=== PATIENT | male | born 2005 | race Caucasian/White ===

== ENCOUNTER 2023-11-25 13:00 | Inpatient (IN) ==
[2023-11-25 13:42] LABS: Basophils # (auto) 0.03 K/uL (0.00-0.20); Basophils % (auto) 0.4 %; Eosinophils # (auto) 0.19 K/uL (0.00-0.50); Eosinophils % (auto) 2.8 %; Hematocrit (blood only) 43.7 % (42.0-52.0); Hemoglobin 15.3 g/dl (14.0-18.0); Immature Granulocytes # (auto) 0.02 K/uL (0.01-0.20); Immature Granulocytes % (auto) 0.3 %; Lymphocytes # (auto) 2.12 K/uL (1.20-3.40); Lymphocytes % (auto) 31.1 %; Mean Corpuscular Hemoglobin 29.3 pg (25.0-34.0); Mean Corpuscular Volume 83.6 fL (80.0-100.0); Mean Platelet Volume 9.9 fL (9.4-12.4); Monocytes # (auto) 0.47 K/uL (0.11-0.59); Monocytes % (auto) 6.9 %; Neutrophils # (auto) 3.99 K/uL (1.40-6.50); Neutrophils % (auto) 58.5 %; Platelet Count 301 K/uL (130-400); RDW Coefficient of Variation 11.9 % (11.5-14.5); RDW Standard Deviation 36.2 fL (36.4-46.3); Red Blood Count 5.23 M/uL (4.70-6.10); White Blood Count 6.82 K/ul (4.8-10.8)
[2023-11-25 14:05] LABS: Alanine Aminotransferase 61 U/L (7-52); Albumin Globulin Ratio 2.3 (0.9-2); Albumin Level 5.1 gm/dl (3.4-5.0); Alkaline Phosphatase 123 U/L (34-104); Anion Gap 7 (3-11); Aspartate Aminotransferase 26 U/L (13-39); BUN Creatinine Ratio 10.6 (10-20); Bilirubin,Total 1.6 mg/dl (0.2-1.0); Blood Urea Nitrogen 10 mg/dl (6-23); Calcium 10.4 mg/dl (8.6-10.3); Carbon Dioxide 30 mmol/L (21-32); Chloride 103 mmol/L (98-107); Est GFR (African American) 134.7 ml/min; Est GFR (Non-African American) 116.2 ml/min; Globulin 2.2 gm/dl (2.5-4.0); Glucose 95 mg/dl (70-99(Fasting)); Potassium 4.2 mmol/L (3.5-5.1); Sodium 140 mmol/L (136-145); Total Protein 7.3 gm/dl (6.0-8.3)
--- NOTE | 2023-11-25 16:19 | Emergency Department Note ---
History of Present Illness General Chief complaint: Infection Stated complaint: TOE INFECTION Time Seen by Provider: 11/25/23 16:04 History of Present Illness Maximum Pain Intensity: 3 This is a 18-year-old male that presents to the emergency department via private vehicle accompanied by 2 corrections officers with complaints of "toe infection". Patient notes for the past 20 months he has been experiencing ingrown toenails with infection. He states that he has been on several different antibiotics. He notes that he just finished an antibiotic on the fourth of this month and is not on them currently. He denies any fevers or chills. No nausea or vomiting. Per review of the emergency room transfer form as provided by [facility], patient has history of allergic rhinitis, amphetamine type substance use disorder, other hallucinogen use disorder, unspecified depressive disorder. No known drug allergies are listed. Medication list includes that of acetaminophen, doxycycline, montelukast, sertraline. In addition, HPI from [facility] reveals "bilateral great toe infections. Completed Bactrim and clindamycin without effectiveness. Started on doxycycline but refused to come to [facility] for med. Refusing from readmission previously." I did ask the patient, and he does confirm that he did not go to [facility] to take the doxycycline as recommended and he also refused admission at the [facility]. He is willing to be admitted here today. Patient does note that he has had toenail resections previously. Home Medications Medication Instructions Recorded Confirmed Type acetaminophen 500 mg tablet 500 mg PO Q6H 11/25/23 11/25/23 History doxycycline hyclate 100 mg tablet 100 mg PO BID 11/25/23 11/25/23 History montelukast 10 mg tablet 10 mg PO HS 11/25/23 11/25/23 History (Singulair) sertraline 50 mg tablet 50 mg PO DAILY 11/25/23 11/25/23 History Allergies Allergy/AdvReac Type Severity Reaction Status Date / Time vancomycin Allergy Intermediate Rash Verified 11/25/23 21:26 Past Med/Surg History Medical History Depression Asthma Surgical History History of dental surgery Social History (Updated 11/25/23 @ 18:10 by SHARON Machuca) Smoking Status: Former smoker Tobacco Type: Cigarettes Second Hand Exposure: Yes; Do You Dip or Chew Tobacco: No; Hx Alcohol Use: Yes Alcohol type: hard liquor Hx Substance Use: Yes Non-Prescribed Medications: Amphetamines and Marijuana Last Used Substance: Unknown Last Used Substance Other:: prior to correctional stay Preferred Language: Malaysian Communication Ability: Effective [employer] Super[employer] Required: No Beliefs That Will Affect Care: None Current Living Situation: Other Current Living Situation Comment: [facility] Feels Safe at Home: Yes Review of Systems A total of 10 systems reviewed and were otherwise negative Physical Exam Vital Signs Vital Signs - 24 hr 11/25/23 13:07 Temperature 36.6 C Temperature Source Skin Pulse Rate 82 Respiratory Rate 18 Blood Pressure 128/77 Blood Pressure Mean 94 Pulse Oximetry 98 Sepsis Recent Fever Within 48 Hours No Sepsis New/Unexplained Change in Mental Status No Sepsis Action Taken by Nursing No Action Required VITAL SIGNS - Vital signs and nursing notes were reviewed. Stable and afebrile. GENERAL -18-year-old male appearing his stated age who is in no acute distress. Communicates well with provider and answers questions appropriately. SKIN -bilateral great toes are erythematous diffusely and circumferentially with brownish exudative type dried purulence at the nail folds bilaterally. Left second toe with similar appearance but to a lesser extent. No necrosis. No lymphangitic streaking. HEAD - NC/AT. EXTREMITIES - No clubbing or peripheral cyanosis. Skin as above. There is tenderness overlying the great toes bilaterally. Cap refill within normal limits. Sensory intact. +5/5 strength noted in UE/LE bilaterally. NEUROLOGIC - Cranial nerves grossly intact. Sensory intact throughout the toes. Cap refill within normal limits. No deficits. PSYCH -patient is alert and oriented, pleasant on exam. Course Administered Medications Montelukast Sodium (Montelukast Sodium 10 Mg Tablet) 10 mg PO HS ASHLEY Stop: 12/25/23 21:08 Last Admin: 11/25/23 21:36 Dose: 10 mg Documented By: KYS Discontinued Medications Cefepime HCl (Maxipime) 2,000 mg in 20 mls @ 5 mls/min IV NOW STA; Protocol Stop: 11/25/23 16:43 Last Admin: 11/25/23 16:48 Dose: 5 mls/min Documented By: MES Vancomycin HCl 2,500 mg/ (Sodium Chloride) 550 mls @ 180 mls/hr IV NOW ONE Stop: 11/25/23 22:03 Last Infusion: 11/25/23 22:59 Dose: Infused Documented By: Infusion: 11/25/23 21:18 Dose: Infused Documented By: Admin: 11/25/23 19:19 Dose: 180 mls/hr Documented By: JOSH Loratadine (Loratadine 10 Mg Tab) 10 mg PO NOW ONE Stop: 11/25/23 21:27 Last Admin: 11/25/23 22:05 Dose: 10 mg Documented By: CARLENE Medical Decision Making Laboratory Data 11/25/23 13:16 11/25/23 13:16 Lab Results 11/25/23 11/25/23 Range/Units 13:16 16:00 WBC 6.82 (4.8-10.8) K/ul RBC 5.23 (4.70-6.10) M/uL Hgb 15.3 (14.0-18.0) g/dl Hct 43.7 (42.0-52.0) % MCV 83.6 (80.0-100.0) fL MCH 29.3 (25.0-34.0) pg MCHC 35.0 (32.0-36.0) g/dL RDW Std Deviation 36.2 L (36.4-46.3) fL RDW Coeff of Genie 11.9 (11.5-14.5) % Plt Count 301 (130-400) K/uL MPV 9.9 (9.4-12.4) fL Immature Gran % (Auto) 0.3 % Neut % (Auto) 58.5 % Lymph % (Auto) 31.1 % [place] % (Auto) 6.9 % Eos % (Auto) 2.8 % Baso % (Auto) 0.4 % Neut # (Auto) 3.99 (1.40-6.50) K/uL Lymph # (Auto) 2.12 (1.20-3.40) K/uL [place] # (Auto) 0.47 (0.11-0.59) K/uL Eos # (Auto) 0.19 (0.00-0.50) K/uL Baso # (Auto) 0.03 (0.00-0.20) K/uL Immature Gran # (Auto) 0.02 (0.01-0.20) K/uL PT Cancelled 11.0 INR Cancelled 1.0 APTT Cancelled 27 PTT Ratio Cancelled 1.0 Sodium 140 (136-145) mmol/L Potassium 4.2 (3.5-5.1) mmol/L Chloride 103 (98-107) mmol/L Carbon Dioxide 30 (21-32) mmol/L Anion Gap 7 (3-11) BUN 10 (6-23) mg/dl Creatinine 0.94 (0.6-1.4) mg/dl Est Cr Clr Drug Dosing Not Reportable Est GFR ( Amer) 134.7 ml/min Est GFR (Non-Af Amer) 116.2 ml/min BUN/Creatinine Ratio 10.6 (10-20) Glucose 95 (70-99(Fasting)) mg/dl Calcium 10.4 H (8.6-10.3) mg/dl Total Bilirubin 1.6 H (0.2-1.0) mg/dl AST 26 (13-39) U/L ALT 61 H (7-52) U/L Alkaline Phosphatase 123 H (34-104) U/L Total Protein 7.3 (6.0-8.3) gm/dl Albumin 5.1 H (3.4-5.0) gm/dl Globulin 2.2 L (2.5-4.0) gm/dl Albumin/Globulin Ratio 2.3 H (0.9-2) Imaging Data Radiologist's Impression: Toe X-Ray 11/25/23 16:19 XR toe(s) RT min 2V CLINICAL HISTORY: 1st toe infection (bilateral) COMPARISON: None FINDINGS: Alignment of the right first toe is anatomic. There is no acute fracture. No bony erosion is present. Joint spaces are preserved. There is right first toe soft tissue swelling. IMPRESSION: 1. No evidence for acute osteomyelitis. No fractures. 2. Right first toe soft tissue swelling. ACT 112: Negative or not required by law. Electronically signed by: Cristian Ruvalcaba M.D. 11/25/2023 5:04 PM Toe X-Ray 11/25/23 16:19 XR toe(s) LT min 2V CLINICAL HISTORY: 1st toe infection (bilateral) COMPARISON: None FINDINGS: There is left first toe soft tissue swelling. No fractures are present. No bony erosions are present. IMPRESSION: 1. No evidence for acute osteomyelitis within the left first toe. No fractures. 2. Left first toe soft tissue swelling. ACT 112: Negative or not required by law. Electronically signed by: Cristian Ruvalcaba M.D. 11/25/2023 5:05 PM MDM Narrative Patient was seen and evaluated as above in room D06. Review was performed of triage nursing notes and vital signs. I did review the accompanying infirmary note/medical history as provided by [facility]. After obtaining a thorough history and physical examination the above work up was performed. Patient presents to us today with what appears to be ongoing and worsening ingrown toenails bilaterally with what appears to be cellulitic change now to the bilateral toes despite oral antibiotics. There does appear to be a bit of an issue with patient compliance regarding medicine/recommended admission at the [facility] per documentation from the [facility] and confirmed by the patient. Options of care were discussed with the patient. IV access was established. Labs were drawn. No leukocytosis or concerning anemia. Coags normal. No emergent metabolic disturbance other than will note elevated T. bili at 1.6, ALT at 61 and alk phos of 123. Bilateral first toe x-rays were obtained and were negative. Small amount of dried drainage noted at the cuticle of the left first toe which was sampled and sent for culture. IV cefepime added. Noting the patient's continuation of what appears to be cellulitis of the bilateral first toes in the setting of recent oral antibiotics we will proceed with inpatient management at this time. I also discussed case with podiatry, Dr. Castro that will also assess the patient. Patient amenable to admission here today. Case discussed with the hospitalist service for admission. Please refer to further documentation regarding his stay. GCS: 15 In the evaluation and treatment of this patient the following differential diagnoses were entertained: Cellulitis, abscess, fracture, dislocation, subluxation, contusion, ingrown toenails, osteomyelitis, among others. Impression & Plan Cellulitis of toe, left, Ingrown left big toenail, Ingrown right big toenail, Cellulitis of toe, right Discharge Plan Visit Data Chief Complaint: Infection Stated Complaint: TOE INFECTION ED Provider: Pablo Villalobos ED Midlevel Provider: Stephan Marvin Discharge Problem: Cellulitis of toe, left, Ingrown left big toenail, Ingrown right big toenail, Cellulitis of toe, right Patient Disposition: Admitted As Inpatient Discharge Instructions Interventions: ED Discharge Assessment Last Done: 11/25/23 20:14
[2023-11-25 16:42] LABS: Partial Thromboplastin Time 27 Seconds (21-31)
[2023-11-25] MEDS: CEFEPIME 2,000 MG/20 ML VIAL IV STA (16:48)
--- NOTE | 2023-11-25 17:05 | XRay Report ---
XR toe(s) RT min 2V CLINICAL HISTORY: 1st toe infection (bilateral) COMPARISON: None FINDINGS: Alignment of the right first toe is anatomic. There is no acute fracture. No bony erosion is present. Joint spaces are preserved. There is right first toe soft tissue swelling. IMPRESSION: 1. No evidence for acute osteomyelitis. No fractures. 2. Right first toe soft tissue swelling. ACT 112: Negative or not required by law. Electronically signed by: Cristian Ruvalcaba M.D. 11/25/2023 5:04 PM
--- NOTE | 2023-11-25 17:06 | XRay Report ---
XR toe(s) LT min 2V CLINICAL HISTORY: 1st toe infection (bilateral) COMPARISON: None FINDINGS: There is left first toe soft tissue swelling. No fractures are present. No bony erosions a re present. IMPRESSION: 1. No evidence for acute osteomyelitis within the left first toe. No fractures. 2. Left first toe soft tissue swelling. ACT 112: Negative or not required by law. Electronically signed by: Cristian Ruvalcaba M.D. 11/25/2023 5:05 PM
[2023-11-25] MEDS ORDERED: VANCOMYCIN CONSULT ACTIVE PRN (17:25)
[2023-11-25] MEDS ORDERED: Patient's HEIGHT &/or WEIGHT Needed SCH (18:15)
--- NOTE | 2023-11-25 18:18 | History & Physical Report ---
Date of Service November 25, 2023 Assessment & Plan (1) Cellulitis of toe, right: (2) Cellulitis of toe, left: (3) Ingrown right big toenail: (4) Ingrown left big toenail: Plan: Admit to [facility] Patient presenting from [facility] for evaluation of bilateral toe infections. Patient reports a history of ingrown toenails for the past 20 months. Most recently resected about 3 weeks ago and completed courses of Bactrim and clindamycin without improvement. In the ED, patient is hemodynamically stable, afebrile, no leukocytosis Bilateral toe x-rays negative for signs of acute osteomyelitis S/p cefepime in the ED, will continue with and add vancomycin Drainage obtained from left great toe and sent for culture Podiatry consult (5) Depression: Plan: Chronic, stable Continue sertraline (6) Asthma: Plan: Chronic, stable Does not utilize routine inhalers Continue Singulair DVT PROPHYLAXIS SCDs Patient seen in collaboration with Dr. Henderson. I spent a total of 60 minutes coordinating, documenting, and providing care for this patient excluding time spent in the performance of separately billed services. This included personally reviewing all current laboratories and imaging studies, medication reconciliation, outpatient chart review, and discussion with specialists. History of Present Illness Chief Complaint: Bilateral great toe infections Primary Care Provider: [facility] 18-year-old male incarcerated at [facility] with PMH asthma, depression, and other problems listed below who presents to the ED for evaluation of bilateral great toe infections. History is obtained from the patient and review of records sent from [facility]. Patient reports ongoing issues with ingrown toenails of his bilateral great toes for the past 20 months. Reports that they were most recently resected about 3 weeks ago. Patient completed courses of Bactrim and clindamycin without improvement. Patient was then prescribed doxycycline however declined medication at [facility]. Patient denies fevers and chills. No other symptoms reported. Denies chest pain shortness of breath. No lightheadedness, dizziness, diaphoresis, syncopal events. Denies abdominal pain, nausea, vomiting, diarrhea. No urinary symptoms. In the ED, patient is hemodynamically stable, afebrile, labs unremarkable. No evidence of osteomyelitis on bilateral toe x-rays. Patient was given IV cefepime. Allergies Allergy/AdvReac Type Severity Reaction Status Date / Time No Known Allergies Allergy Unverified 11/25/23 17:25 Home Medications Medication Instructions Recorded Confirmed Type acetaminophen 500 mg tablet 500 mg PO Q6H 11/25/23 11/25/23 History doxycycline hyclate 100 mg tablet 100 mg PO BID 11/25/23 11/25/23 History montelukast 10 mg tablet 10 mg PO HS 11/25/23 11/25/23 History (Singulair) sertraline 50 mg tablet 50 mg PO DAILY 11/25/23 11/25/23 History Past Med/Surg History Medical History Depression Asthma Surgical History History of dental surgery Social History (Updated 11/25/23 @ 18:10 by SHARON Machuca) Smoking Status: Former smoker Hx Alcohol Use: Yes Hx Substance Use: Yes Non-Prescribed Medications: Amphetamines and Marijuana Feels Safe at Home: Yes Physical Exam Constitutional: WD/WN, vitals as above no acute distress Eyes: PERRL, conjunctivae normal, anicteric sclerae ENMT: external ear and nose normal, oropharynx normal Respiratory: normal respiratory effort, lungs clear to auscultation Cardiovascular: Rate/Rhythm: regular rate and regular rhythm Vessels: normal peripheral pulses Extremities: no edema Gastrointestinal (Abdomen): normal bowel sounds, soft, nontender, no hepatosplenomegaly Musculoskeletal: no cyanosis or clubbing, extremities motor strength 5/5 Skin: BL great toes with erythema, edema, and dried drainage over the nails Neurologic: PERRL, EOMI, accommodation nl, no face palsy, no dysarthria Psychiatric: A+Ox3, euthymic affect Results & Data Results & Data Vital Signs (Past 12 Hours) Vital Signs Temp Pulse Resp BP Pulse Ox 11/25/23 13:07 36.6 C 82 18 128/77 98 Laboratory Results Short CBC 11/25/23 Range/Units 13:16 WBC 6.82 (4.8-10.8) K/ul Hgb 15.3 (14.0-18.0) g/dl Hct 43.7 (42.0-52.0) % Plt Count 301 (130-400) K/uL BMP 11/25/23 13:16 Sodium 140 Potassium 4.2 Chloride 103 Carbon Dioxide 30 BUN 10 Creatinine 0.94 Glucose 95 Calcium 10.4 H Liver Function 11/25/23 Range/Units 13:16 Total Bilirubin 1.6 H (0.2-1.0) mg/dl AST 26 (13-39) U/L ALT 61 H (7-52) U/L Alkaline Phosphatase 123 H (34-104) U/L Albumin 5.1 H (3.4-5.0) gm/dl Diagnostic Findings Toe X-Ray 11/25/23 16:19 XR toe(s) RT min 2V CLINICAL HISTORY: 1st toe infection (bilateral) COMPARISON: None FINDINGS: Alignment of the right first toe is anatomic. There is no acute fracture. No bony erosion is present. Joint spaces are preserved. There is right first toe soft tissue swelling. IMPRESSION: 1. No evidence for acute osteomyelitis. No fractures. 2. Right first toe soft tissue swelling. ACT 112: Negative or not required by law. Electronically signed by: Cristian Ruvalcaba M.D. 11/25/2023 5:04 PM Toe X-Ray 11/25/23 16:19 XR toe(s) LT min 2V CLINICAL HISTORY: 1st toe infection (bilateral) COMPARISON: None FINDINGS: There is left first toe soft tissue swelling. No fractures are present. No bony erosions are present. IMPRESSION: 1. No evidence for acute osteomyelitis within the left first toe. No fractures. 2. Left first toe soft tissue swelling. ACT 112: Negative or not required by law. Electronically signed by: Cristian Ruvalcaba M.D. 11/25/2023 5:05 PM Supervising Physician Co-Signing Physician Notes I have seen and examined the patient and have discussed the case with the provider above. I have reviewed the advanced practitioner's documentation, and I agree with, and take responsibility for that plan of care. 18 yo M without systemic signs or symptoms of sepsis presenting with bilateral toe infection in the periungual region. History of recurrent infection as noted above. There is likely a fungal component here, also. Agree with broad abx for now and defer to podiatry for additional therapies. Agree with exam as noted above. He reports being on Zoloft and abilify but has weaned himself off these drugs at this point. His underlying mental health issue is PTSD. DO Santiago
[2023-11-25] MEDS: VANCOMYCIN HCL 2,500 MG in SODIUM CHLORIDE 0.9% 500 ML IV ONE (19:19)
--- NOTE | 2023-11-25 19:48 | Pharmacy Report ---
Pharmacy PK ABX Note - Date of Service November 25, 2023 - Assessment and Plan Laboratory Tests 11/25/23 13:16 Creatinine 0.94 Assessment 18 year old M received cefepime 2g IV x 1 and Vanc for EMPIRIC treatment of toe infection. Pertinent microbiologic data: pending * Day # 1 of antimicrobial therapy. Plan Vancomycin * Loading dose: 2500mg (~25mg/kg) IV x 1 * Maintenance dose: 1500mg (~11mg/kg) IV every 12 hours * Regimen is predicted to achieve target AUC/ANTONIO of 400-600 mg/L.hr * Random Vanc to be reassess if Vanc continued beyond 48 hours. Pharmacy will continue to follow and will adjust dose/frequency as necessary. Thank you. Pharmacy has transitioned to AUC monitoring for vancomycin. AUC/ANTONIO is the preferred PK/PD target and is associated with decreased risk of nephrotoxicity compared to traditional trough targets.
--- NOTE | 2023-11-25 21:24 | Communication Note ---
Date of Service: November 25, 2023 Patient had to have red IV site and patient redness associated with generalized pruritus during IV vancomycin infusion. No airway or swallowing issues as per RN. AP Vancomycin hypersensitivity Stop vancomycin and add to allergy/ADR list Claritin now Daptomycin in place of vancomycin for MRSA coverage for cellulitis given history of failed response to outpatient clindamycin and Bactrim as per records.
[2023-11-25] MEDS: MONTELUKAST SODIUM 10 MG TABLET PO SCH (21:36)
[2023-11-25] MEDS: LORATADINE 10 MG TAB PO ONE (22:05)
[2023-11-26] MEDS: CEFEPIME 2,000 MG in SYRINGE 0 ML IV SCH (01:55)
[2023-11-26] MEDS: DAPTOmycin 350 MG in SYRINGE 0 ML IV SCH (04:17)
[2023-11-26] MEDS ORDERED: VANCOMYCIN HCL 1,500 MG in SODIUM CHLORIDE 0.9% 500 ML IV SCH (06:00)
[2023-11-26 06:45] LABS: Hematocrit (blood only) 43.1 % (42.0-52.0); Hemoglobin 14.7 g/dl (14.0-18.0); Mean Corpuscular Hemoglobin 29.2 pg (25.0-34.0); Mean Corpuscular Hgb Conc 34.1 g/dL (32.0-36.0); Mean Corpuscular Volume 85.7 fL (80.0-100.0); Mean Platelet Volume 10.1 fL (9.4-12.4); Platelet Count 246 K/uL (130-400); RDW Coefficient of Variation 11.9 % (11.5-14.5); RDW Standard Deviation 36.7 fL (36.4-46.3); Red Blood Count 5.03 M/uL (4.70-6.10); White Blood Count 6.93 K/ul (4.8-10.8)
[2023-11-26 07:34] LABS: BUN Creatinine Ratio 10.6 (10-20); Calcium 9.2 mg/dl (8.6-10.3); Creatinine Clr Calc Pharmacy 150.3 ml/min; Est GFR (African American) 134.7 ml/min; Est GFR (Non-African American) 116.2 ml/min; Potassium 3.8 mmol/L (3.5-5.1)
--- NOTE | 2023-11-26 07:55 | Orthopedic Consultation ---
Date of Consultation November 26, 2023 Assessment & Plan (1) Cellulitis of toe, right: Patient seen and evaluated in bed W360-1. We discussed previous failed treatment modalities. We reviewed use of partial nail avulsions with matrixectomies. Patient is eligible for bedside procedure. Awaiting availability of phenol for chemical matrixectomy. Bedside procedure planned for 11/28/23. Thank you for allowing me to participate in the care of this Patient. (2) Cellulitis of toe, left: (3) Ingrown right big toenail: (4) Ingrown left big toenail: History of Present Illness Attending Physician: John Elizondo MD History of Present Illness Patient is a 18-year-old male incarcerated at [facility] seen at bedside in room 360-1 for bilateral great toe infections. Patient has a past medical history of asthma, and depression. History is obtained from the patient and review of previous documentation. Patient reports ongoing issues with ingrown toenails of his bilateral great toes for the past 20 months. Reports that they were most recently resected about 3 weeks ago. Patient completed courses of Bactrim and clindamycin without improvement. Patient was then prescribed doxycycline however declined medication at [facility]. No evidence of osteomyelitis on bilateral toe x-rays. Patient started IV cefepime. Allergies Allergy/AdvReac Type Severity Reaction Status Date / Time vancomycin Allergy Intermediate Rash Verified 11/25/23 21:26 Home Medications Medication Instructions Recorded Confirmed Type acetaminophen 500 mg tablet 500 mg PO Q6H 11/25/23 11/25/23 History doxycycline hyclate 100 mg tablet 100 mg PO BID 11/25/23 11/25/23 History montelukast 10 mg tablet 10 mg PO HS 11/25/23 11/25/23 History (Singulair) sertraline 50 mg tablet 50 mg PO DAILY 11/25/23 11/25/23 History Patient History Medical History Depression Asthma Surgical History History of dental surgery Social History Smoking Status: Former smoker Tobacco Type: Cigarettes Second Hand Exposure: Yes; Do You Dip or Chew Tobacco: No; Hx Alcohol Use: Yes Alcohol type: hard liquor Hx Substance Use: Yes Non-Prescribed Medications: Amphetamines and Marijuana Last Used Substance: Unknown Last Used Substance Other:: prior to correctional stay Preferred Language: Telugu Communication Ability: Effective Vp Ancillary Required: No Beliefs That Will Affect Care: None Current Living Situation: Other Current Living Situation Comment: [facility] Feels Safe at Home: Yes Physical Exam Constitutional: well developed and well nourished Eyes: normal visual martinez by confrontation Neck: normal visual inspection Respiratory: normal respiratory effort Cardiovascular: Rate/Rhythm: regular rate and regular rhythm Vessels: posterior tibial pulses present and dorsalis pedis pulses present Musculoskeletal: Extremities: extremities normal to inspection Skin: Bilateral great toes show medial and lateral nail fold paronychia. There is significant drainage present built up around nail borders. Hypergranulation present. Neurologic: normal touch/pain/proprioception Epicritic sensation intact. Psychiatric: Orientation: alert and oriented x 3 Results & Data Vital Signs (Past 12 Hours) Vital Signs Temp Pulse Resp BP Pulse Ox O2 Del Method 11/26/23 07:22 36.8 C 81 16 112/70 99 Room Air 11/25/23 21:40 Room Air 11/25/23 20:14 Room Air 11/25/23 20:09 64 16 120/71 98 Room Air Diagnostic Findings [place], [place] [phone] XRay Report Patient: TWYLA ACOSTA [id number] Admit Date: 11/25/23 MR#: [id number] Address1: [facility] Acct ID:[id number] Address2: Date: [address] [facility] Zip: [place] [address] Age: 18 Location: ED Sex: M Room/Bed: Att Phy: Diagnosis: TOE INFECTION Batsheva Phy: [facility] Service Date: 11/25/23 Fam Phy: Interpreting Phy: Cristian Ruvalcaba MDAdmit Phy: Ordering Phy: Stephan Marvin PA-C cc: ~ XR toe(s) LT min 2V CLINICAL HISTORY: 1st toe infection (bilateral) COMPARISON: None FINDINGS: There is left first toe soft tissue swelling. No fractures are present. No bony erosions are present. IMPRESSION: 1. No evidence for acute osteomyelitis within the left first toe. No fractures. 2. Left first toe soft tissue swelling. ACT 112: Negative or not required by law. Electronically signed by: Cristian Ruvalcaba M.D. 11/25/2023 5:05 PM Dictated: 11/25/231703 Transcribed: 11/25/231703 [phone] X[facility] Report Patient: TWYLA ACOSTA [id number] Admit Date: 11/25/23 MR#: [id number] Address1: [address] Acct ID:[id number] Address2: Date: [address] [facility] Zip: [place] [address] Age: 18 Location: ED Sex: M Room/Bed: Att Phy: Diagnosis: TOE INFECTION Batsheva Phy: [facility] Service Date: 11/25/23 Fam Phy: Interpreting Phy: Cristian Ruvalcaba MDAdmit Phy: Ordering Phy: Stephan Marvin PA-C cc: ~ XR toe(s) RT min 2V CLINICAL HISTORY: 1st toe infection (bilateral) COMPARISON: None FINDINGS: Alignment of the right first toe is anatomic. There is no acute fracture. No bony erosion is present. Joint spaces are preserved. There is right first toe soft tissue swelling. IMPRESSION: 1. No evidence for acute osteomyelitis. No fractures. 2. Right first toe soft tissue swelling. ACT 112: Negative or not required by law. Electronically signed by: Cristian Ruvalcaba M.D. 11/25/2023 5:04 PM Dictated: 11/25/231701 Transcribed: 11/25/231701
[2023-11-26] MEDS: SERTRALINE HCL 50 MG TABLET PO SCH (08:34)
--- NOTE | 2023-11-26 12:41 | Hospitalist Progress Note ---
Date of Service November 26, 2023 Assessment & Plan (1) Cellulitis of toe, right: (2) Cellulitis of toe, left: (3) Ingrown right big toenail: (4) Ingrown left big toenail: Plan: Patient presenting from [facility] for evaluation of bilateral toe infections. Patient reports a history of ingrown toenails for the past 20 months. Most recently resected about 3 weeks ago and completed courses of Bactrim and clindamycin without improvement. B/L Toe cellulitis Failed outpatient antibiotic treatment with Bactrim, clindamycin --Left Toe X ray:No evidence for acute osteomyelitis within the left first toe. No fractures. Left first toe soft tissue swelling. --Right Toe X ray: No evidence for acute osteomyelitis. No fractures. Right first toe soft tissue swelling. -- Wound cultures pending --Vancomycin discontinued as patient developed rash Continue daptomycin, cefepime for now Appreciate podiatry input Plan for chemical matrixectomy on 11/28/2023 (5) Depression: Plan: Chronic, stable Continue sertraline (6) Asthma: Plan: Currently no signs of exacerbation Does not utilize routine inhalers Continue Singulair DVT Px SCDs for now Admission and Anticipated Discharge Date Admission Date: November 25, 2023 Subjective Patient is seen and examined at bedside Reports bilateral toe infection Denies any pain Also reports toe erythema, discharge Denies any chest pain, dyspnea, dizziness, nausea, vomiting, abdominal pain Review of Systems Review of Systems: All systems reviewed & are unremarkable except as noted in Subjective Physical Exam Physical Exam: Physical Exam: Vitals signs as noted above General Appearance:Moderately built and nourished, no apparent distress Head: normocephalic, Atraumatic Eyes: normal inspection, EOMI Neck: supple, Trachea midline Respiratory/Chest: Normal breath sounds, CTA, No accessory muscle use Cardiovascular: S1, S2, No murmur Abdomen/GI:Soft, Non tender, Bowel sounds present Extremities/Musculoskeletal:normal inspection, no edema, +B/L Toe paronychia, hypergranulation Neurologic/Psych:AAOX3, grossly no focal neurological deficits,+ normal sensation Skin: normal color, warm Results & Data Results & Data Vital Signs (Past 12 Hours) Vital Signs Temp Pulse Resp BP Pulse Ox O2 Del Method 11/26/23 07:22 36.8 C 81 16 112/70 99 Room Air Laboratory Results Short CBC 11/25/23 11/26/23 Range/Units 13:16 05:42 WBC 6.82 6.93 (4.8-10.8) K/ul Hgb 15.3 14.7 (14.0-18.0) g/dl Hct 43.7 43.1 (42.0-52.0) % Plt Count 301 246 (130-400) K/uL BMP 11/25/23 11/26/23 13:16 05:42 Sodium 140 140 Potassium 4.2 3.8 Chloride 103 106 Carbon Dioxide 30 26 BUN 10 10 Creatinine 0.94 0.94 Glucose 95 88 Calcium 10.4 H 9.2 Liver Function 11/25/23 Range/Units 13:16 Total Bilirubin 1.6 H (0.2-1.0) mg/dl AST 26 (13-39) U/L ALT 61 H (7-52) U/L Alkaline Phosphatase 123 H (34-104) U/L Albumin 5.1 H (3.4-5.0) gm/dl
[2023-11-27 06:37] LABS: Hematocrit (blood only) 44.3 % (42.0-52.0); Hemoglobin 15.5 g/dl (14.0-18.0); Mean Corpuscular Hemoglobin 29.2 pg (25.0-34.0); Mean Corpuscular Volume 83.4 fL (80.0-100.0); Mean Platelet Volume 9.8 fL (9.4-12.4); Platelet Count 252 K/uL (130-400); RDW Standard Deviation 36.5 fL (36.4-46.3); Red Blood Count 5.31 M/uL (4.70-6.10); White Blood Count 6.33 K/ul (4.8-10.8)
[2023-11-27 07:15] LABS: Calcium 10.1 mg/dl (8.6-10.3); Creatinine Clr Calc Pharmacy 141.3 ml/min; Est GFR (Non-African American) 107.9 ml/min; Magnesium 2.1 mg/dl (1.7-2.4); Potassium 4.6 mmol/L (3.5-5.1)
--- NOTE | 2023-11-27 13:58 | Hospitalist Progress Note ---
Date of Service November 27, 2023 Assessment & Plan (1) Cellulitis of toe, right: (2) Cellulitis of toe, left: (3) Ingrown right big toenail: (4) Ingrown left big toenail: Plan: Patient presenting from [facility] for evaluation of bilateral toe infections. Patient reports a history of ingrown toenails for the past 20 months. Most recently resected about 3 weeks ago and completed courses of Bactrim and clindamycin without improvement. B/L Toe cellulitis Failed outpatient antibiotic treatment with Bactrim, clindamycin --Left Toe X ray:No evidence for acute osteomyelitis within the left first toe. No fractures. Left first toe soft tissue swelling. --Right Toe X ray: No evidence for acute osteomyelitis. No fractures. Right first toe soft tissue swelling. -- Wound cultures: Growing MRSA --Vancomycin discontinued as patient developed rash Continue daptomycin, cefepime for now Appreciate podiatry input Plan for chemical matrixectomy tomorrow per podiatry Continue current management (5) Depression: Plan: Chronic, stable Continue sertraline (6) Asthma: Plan: Currently no signs of exacerbation Does not utilize routine inhalers Continue Singulair DVT Px SCDs for now Admission and Anticipated Discharge Date Admission Date: November 26, 2023 Subjective Patient is seen and examined at bedside No new complaints Toe erythema, discharge improved Denies any chest pain, dyspnea, dizziness, nausea, vomiting, abdominal pain Guards at bedside Review of Systems Review of Systems: All systems reviewed & are unremarkable except as noted in Subjective Physical Exam Physical Exam: Physical Exam: Vitals signs as noted above General Appearance:Moderately built and nourished, no apparent distress Head: normocephalic, Atraumatic Eyes: normal inspection, EOMI Neck: supple, Trachea midline Respiratory/Chest: Normal breath sounds, CTA, No accessory muscle use Cardiovascular: S1, S2, No murmur Abdomen/GI:Soft, Non tender, Bowel sounds present Extremities/Musculoskeletal:normal inspection, no edema, +B/L Toe paronychia, hypergranulation Neurologic/Psych:AAOX3, grossly no focal neurological deficits,+ normal sensation Skin: normal color, warm Results & Data Results & Data Vital Signs (Past 12 Hours) Vital Signs Temp Pulse Resp BP Pulse Ox O2 Del Method 11/27/23 13:41 37.0 C 65 18 120/75 97 Room Air 11/27/23 07:44 36.4 C L 57 L 18 113/75 97 Room Air Laboratory Results Short CBC 11/27/23 Range/Units 06:14 WBC 6.33 (4.8-10.8) K/ul Hgb 15.5 (14.0-18.0) g/dl Hct 44.3 (42.0-52.0) % Plt Count 252 (130-400) K/uL BMP 11/27/23 06:14 Sodium 139 Potassium 4.6 D Chloride 104 Carbon Dioxide 29 BUN 10 Creatinine 1.00 Glucose 92 Calcium 10.1
[2023-11-28 07:11] LABS: Hematocrit (blood only) 46.3 % (42.0-52.0); Hemoglobin 15.8 g/dl (14.0-18.0); Mean Corpuscular Hemoglobin 28.7 pg (25.0-34.0); Mean Corpuscular Hgb Conc 34.1 g/dL (32.0-36.0); Mean Platelet Volume 9.8 fL (9.4-12.4); Platelet Count 262 K/uL (130-400); RDW Coefficient of Variation 11.9 % (11.5-14.5); RDW Standard Deviation 35.8 fL (36.4-46.3); Red Blood Count 5.51 M/uL (4.70-6.10); White Blood Count 7.05 K/ul (4.8-10.8)
[2023-11-28 07:35] LABS: BUN Creatinine Ratio 11.7 (10-20); Calcium 9.9 mg/dl (8.6-10.3); Creatinine Clr Calc Pharmacy 137.2 ml/min; Est GFR (African American) 120.6 ml/min; Est GFR (Non-African American) 104.1 ml/min
--- NOTE | 2023-11-28 16:39 | Hospitalist Progress Note ---
Date of Service November 28, 2023 Assessment & Plan (1) Cellulitis of toe, right: (2) Cellulitis of toe, left: (3) Ingrown right big toenail: (4) Ingrown left big toenail: Plan: Patient presenting from [facility] for evaluation of bilateral toe infections. Patient reports a history of ingrown toenails for the past 20 months. Most recently resected about 3 weeks ago and completed courses of Bactrim and clindamycin without improvement. B/L Toe cellulitis Failed outpatient antibiotic treatment with Bactrim, clindamycin --Left Toe X ray:No evidence for acute osteomyelitis within the left first toe. No fractures. Left first toe soft tissue swelling. --Right Toe X ray: No evidence for acute osteomyelitis. No fractures. Right first toe soft tissue swelling. -- Wound cultures: Growing MRSA --Vancomycin discontinued as patient developed rash Continue daptomycin, cefepime >> daptomycin only Appreciate podiatry input Plan for chemical matrixectomy today per podiatry Likely discharge in 1 to 2 days (5) Depression: Plan: Chronic, stable Continue sertraline (6) Asthma: Plan: Currently no signs of exacerbation Does not utilize routine inhalers Continue Singulair DVT Px SCDs for now Admission and Anticipated Discharge Date Admission Date: November 26, 2023 Subjective Patient is seen and examined at bedside Clinically no significant change from yesterday On discharge from [facility] today Denies any chest pain, dyspnea, dizziness, nausea, vomiting, abdominal pain Guards at bedside Review of Systems Review of Systems: All systems reviewed & are unremarkable except as noted in Subjective Physical Exam Physical Exam: Physical Exam: Vitals signs as noted above General Appearance:Moderately built and nourished, no apparent distress Head: normocephalic, Atraumatic Eyes: normal inspection, EOMI Neck: supple, Trachea midline Respiratory/Chest: Normal breath sounds, CTA, No accessory muscle use Cardiovascular: S1, S2, No murmur Abdomen/GI:Soft, Non tender, Bowel sounds present Extremities/Musculoskeletal:normal inspection, no edema, +B/L Toe paronychia, hypergranulation Neurologic/Psych:AAOX3, grossly no focal neurological deficits,+ normal sensation Skin: normal color, warm Results & Data Results & Data Vital Signs (Past 12 Hours) Vital Signs Temp Pulse Resp BP Pulse Ox O2 Del Method 11/28/23 14:57 36.5 C 65 16 115/69 96 Room Air 11/28/23 08:19 36.5 C 58 L 16 117/75 95 Room Air Laboratory Results Short CBC 11/28/23 Range/Units 06:47 WBC 7.05 (4.8-10.8) K/ul Hgb 15.8 (14.0-18.0) g/dl Hct 46.3 (42.0-52.0) % Plt Count 262 (130-400) K/uL BMP 11/28/23 06:47 Sodium 139 Potassium 4.0 Chloride 103 Carbon Dioxide 30 BUN 12 Creatinine 1.03 Glucose 92 Calcium 9.9
[2023-11-28] MEDS: ACETAMINOPHEN 325 MG TAB PO PRN (18:39)
--- NOTE | 2023-11-28 20:59 | Orthopedic Progress Note ---
Date of Service November 28, 2023 Assessment & Plan (1) Cellulitis of toe, right: Plan: Patient seen and evaluated in bed W360-1. We discussed previous failed treatment modalities. We reviewed use of partial nail avulsions with matrixectomies. After verbal consent partial nail avulsions with matrixectomies applied to right and left great toe bilateral borders without incident. See procedure noted below. Patient will have operative sites flushed daily with saline and dressings changed daily including gauze and coban. This will continue for 2 weeks or until drainage stops. Will continue to follow while Patient remains in house. Thank you for allowing me to participate in the care of this Patient. Procedure Note> Preoperative diagnosis: Painful ingrown right and left hallux medial and lateral border Postoperative diagnosis: Same Name of operative: Partial nail avulsion with matrixectomy to right and left great toes bilateral nail borders Surgeon: Dr. Daniel Castro Anesthesia: 3cc of 1% lidocaine plain right and left hallux digital block Procedure in detail: After verbal consent was obtained attention was directed to the surgical toes. The area surrounding the great toes were prepared and draped in the usual aseptic manner. The toes were prepped with povidone-iodine solution. A standard digital block was performed, using a 3-mL syringe and a 27-gauge needle. 3 mL of 1% lidocaine was utilized in a digital block to the right and left great toes producing adequate anesthesia. A wait of five minutes allowed the block to become effective. A sterile mahnaz drain tourniquet was applied proximal to the operative sites on the right and left hallux. The toes were rewashed with surgical solution. A nail elevator was slid under the cuticles to separate the nail plates from the overlying proximal nail folds. The 20% of the ingrown nail plates was then cut free using an Japanese anvil and gently pulled free with a hemostat. Micro-tip applicators immersed in Phenol were applied to the proximal nail matrix for 3 separate, 30 seconds time intervals with out incident. The area was then flushed with copious amounts of 70% isopropyl alcohol upon the completion of the matrictectomy. The tourniquet was removed and a prompt hyperemic response was seen to the toe. Dry, sterile, dressing was applied consisting of 2x2 gauze and coban. The patient tolerated anesthesia and the procedure well. Call Dr. Castro if any problems arise. Complications: None (2) Cellulitis of toe, left: (3) Ingrown right big toenail: (4) Ingrown left big toenail: Admission and Anticipated Discharge Date Admission Date: November 26, 2023 Subjective Patient is seen and examined at bedside in room W360-1. Guards are present at bedside. Patient has no complaints. Physical Exam Constitutional: well developed and well nourished Eyes: normal visual martinez by confrontation Neck: normal visual inspection Respiratory: normal respiratory effort Cardiovascular: Rate/Rhythm: regular rate and regular rhythm Vessels: posterior tibial pulses present and dorsalis pedis pulses present Musculoskeletal: Extremities: extremities normal to inspection Neurologic: normal touch/pain/proprioception Psychiatric: Orientation: alert and oriented x 3 Results & Data Vital Signs (Past 12 Hours) Vital Signs Temp Pulse Resp BP Pulse Ox O2 Del Method 11/28/23 19:58 36.6 C 67 14 128/83 96 Room Air 11/28/23 14:57 36.5 C 65 16 115/69 96 Room Air
--- NOTE | 2023-11-29 12:01 | Hospitalist Progress Note ---
Date of Service November 29, 2023 Assessment & Plan (1) Cellulitis of toe, right: (2) Cellulitis of toe, left: (3) Ingrown right big toenail: (4) Ingrown left big toenail: Plan: Patient presenting from [facility] for evaluation of bilateral toe infections. Patient reports a history of ingrown toenails for the past 20 months. Most recently resected about 3 weeks ago and completed courses of Bactrim and clindamycin without improvement. B/L Toe cellulitis Secondary to ingrown right and left hallux medial and lateral border Failed outpatient antibiotic treatment with Bactrim, clindamycin --Left Toe X ray:No evidence for acute osteomyelitis within the left first toe. No fractures. Left first toe soft tissue swelling. --Right Toe X ray: No evidence for acute osteomyelitis. No fractures. Right first toe soft tissue swelling. -- Wound cultures: Growing MRSA --Vancomycin discontinued as patient developed rash Continue daptomycin, cefepime >> daptomycin only --S/P Partial nail avulsion with matrixectomy to right and left great toes bilateral nail borders by Dr. Castro on 11/28/2023 Discussed with podiatry today: Okay for discharge. Wash wound daily with saline and dressings changed daily including gauze and coban. Appreciate podiatry input Plan to discharge to correctional facility today (5) Depression: Plan: Chronic, stable Continue sertraline (6) Asthma: Plan: Currently no signs of exacerbation Does not utilize routine inhalers Continue Singulair DVT Px SCDs for now Disposition [facility] Admission and Anticipated Discharge Date Admission Date: November 26, 2023 Subjective Patient is seen and examined at bedside No new complaints Discussed with podiatry today Denies any chest pain, dyspnea, dizziness, nausea, vomiting, abdominal pain Guards at bedside Plan to discharge back to correctional facility today Review of Systems Review of Systems: All systems reviewed & are unremarkable except as noted in Subjective Physical Exam Physical Exam: Physical Exam: Vitals signs as noted above General Appearance:Moderately built and nourished, no apparent distress Head: normocephalic, Atraumatic Eyes: normal inspection, EOMI Neck: supple, Trachea midline Respiratory/Chest: Normal breath sounds, CTA, No accessory muscle use Cardiovascular: S1, S2, No murmur Abdomen/GI:Soft, Non tender, Bowel sounds present Extremities/Musculoskeletal:normal inspection, no edema, +B/L Toe paronychia in dressing Neurologic/Psych:AAOX3, grossly no focal neurological deficits,+ normal sensation Skin: normal color, warm Results & Data Results & Data Vital Signs (Past 12 Hours) Vital Signs Temp Pulse Resp BP Pulse Ox O2 Del Method 11/29/23 07:34 36.7 C 61 18 112/71 95 Room Air
--- NOTE | 2023-11-29 12:04 | Discharge Summary ---
Date of Service November 29, 2023 Admission HPI Per Admitting Provider 18-year-old male incarcerated at [facility] with PMH asthma, depression, and other problems listed below who presents to the ED for evaluation of bilateral great toe infections. History is obtained from the patient and review of records sent from [facility]. Patient reports ongoing issues with ingrown toenails of his bilateral great toes for the past 20 months. Reports that they were most recently resected about 3 weeks ago. Patient completed courses of Bactrim and clindamycin without improvement. Patient was then prescribed doxycycline however declined medication at [facility]. Patient denies fevers and chills. No other symptoms reported. Denies chest pain shortness of breath. No lightheadedness, dizziness, diaphoresis, syncopal events. Denies abdominal pain, nausea, vomiting, diarrhea. No urinary symptoms. In the ED, patient is hemodynamically stable, afebrile, labs unremarkable. No evidence of osteomyelitis on bilateral toe x-rays. Patient was given IV cefepime. Admission Exam Per Admitting Provider Constitutional: WD/WN, vitals as above no acute distress Eyes: PERRL, conjunctivae normal, anicteric sclerae ENMT: external ear and nose normal, oropharynx normal Respiratory: normal respiratory effort, lungs clear to auscultation Cardiovascular: Rate/Rhythm: regular rate and regular rhythm Vessels: normal peripheral pulses Extremities: no edema Gastrointestinal (Abdomen): normal bowel sounds, soft, nontender, no hepatosplenomegaly Musculoskeletal: no cyanosis or clubbing, extremities motor strength 5/5 Skin: BL great toes with erythema, edema, and dried drainage over the nails Neurologic: PERRL, EOMI, accommodation nl, no face palsy, no dysarthria Psychiatric: A+Ox3, euthymic affect Principal Diagnosis Bilateral Toe cellulitis Secondary to ingrown right and left hallux medial and lateral border Discharge Data Allergies Allergy/AdvReac Type Severity Reaction Status Date / Time vancomycin Allergy Intermediate Rash Verified 11/28/23 12:26 Consultations 11/25/23 16:47 ED Decision to Admit Stat 11/25/23 21:09 Consult Podiatry Routine Procedures Performed Laboratory Results WBC 7.05 K/ul (4.8-10.8) 11/28/23 06:47 RBC 5.51 M/uL (4.70-6.10) 11/28/23 06:47 Hgb 15.8 g/dl (14.0-18.0) 11/28/23 06:47 Hct 46.3 % (42.0-52.0) 11/28/23 06:47 MCV 84.0 fL (80.0-100.0) 11/28/23 06:47 MCH 28.7 pg (25.0-34.0) 11/28/23 06:47 MCHC 34.1 g/dL (32.0-36.0) 11/28/23 06:47 RDW Std Deviation 35.8 fL (36.4-46.3) L 11/28/23 06:47 RDW Coeff of Genie 11.9 % (11.5-14.5) 11/28/23 06:47 Plt Count 262 K/uL (130-400) 11/28/23 06:47 MPV 9.8 fL (9.4-12.4) 11/28/23 06:47 Immature Gran % (Auto) 0.3 % 11/25/23 13:16 Neut % (Auto) 58.5 % 11/25/23 13:16 Lymph % (Auto) 31.1 % 11/25/23 13:16 Coles % (Auto) 6.9 % 11/25/23 13:16 Eos % (Auto) 2.8 % 11/25/23 13:16 Baso % (Auto) 0.4 % 11/25/23 13:16 Neut # (Auto) 3.99 K/uL (1.40-6.50) 11/25/23 13:16 Lymph # (Auto) 2.12 K/uL (1.20-3.40) 11/25/23 13:16 Coles # (Auto) 0.47 K/uL (0.11-0.59) 11/25/23 13:16 Eos # (Auto) 0.19 K/uL (0.00-0.50) 11/25/23 13:16 Baso # (Auto) 0.03 K/uL (0.00-0.20) 11/25/23 13:16 Immature Gran # (Auto) 0.02 K/uL (0.01-0.20) 11/25/23 13:16 PT 11.0 Seconds (9.0-12.0) 11/25/23 16:00 INR 1.0 (0.9-1.1) 11/25/23 16:00 APTT 27 Seconds (21-31) 11/25/23 16:00 PTT Ratio 1.0 11/25/23 16:00 Sodium 139 mmol/L (136-145) 11/28/23 06:47 Potassium 4.0 mmol/L (3.5-5.1) 11/28/23 06:47 Chloride 103 mmol/L (98-107) 11/28/23 06:47 Carbon Dioxide 30 mmol/L (21-32) 11/28/23 06:47 Anion Gap 6 (3-11) 11/28/23 06:47 BUN 12 mg/dl (6-23) 11/28/23 06:47 Creatinine 1.03 mg/dl (0.6-1.4) 11/28/23 06:47 Est Cr Clr Drug Dosing 137.2 ml/min 11/28/23 06:47 Est GFR ( Amer) 120.6 ml/min 11/28/23 06:47 Est GFR (Non-Af Amer) 104.1 ml/min 11/28/23 06:47 BUN/Creatinine Ratio 11.7 (10-20) 11/28/23 06:47 Glucose 92 mg/dl (70-99(Fasting)) 11/28/23 06:47 Calcium 9.9 mg/dl (8.6-10.3) 11/28/23 06:47 Magnesium 2.1 mg/dl (1.7-2.4) 11/27/23 06:14 Total Bilirubin 1.6 mg/dl (0.2-1.0) H 11/25/23 13:16 AST 26 U/L (13-39) 11/25/23 13:16 ALT 61 U/L (7-52) H 11/25/23 13:16 Alkaline Phosphatase 123 U/L (34-104) H 11/25/23 13:16 Total Protein 7.3 gm/dl (6.0-8.3) 11/25/23 13:16 Albumin 5.1 gm/dl (3.4-5.0) H 11/25/23 13:16 Globulin 2.2 gm/dl (2.5-4.0) L 11/25/23 13:16 Albumin/Globulin Ratio 2.3 (0.9-2) H 11/25/23 13:16 Nasal Screen MRSA (PCR) Negative (Negative) 11/25/23 22:30 SARS-CoV-2, RNA, NAAT NEGATIVE (NEGATIVE) 11/25/23 17:25 Impressions Toe X-Ray 11/25/23 16:19 XR toe(s) LT min 2V CLINICAL HISTORY: 1st toe infection (bilateral) COMPARISON: None FINDINGS: There is left first toe soft tissue swelling. No fractures are present. No bony erosions are present. IMPRESSION: 1. No evidence for acute osteomyelitis within the left first toe. No fractures. 2. Left first toe soft tissue swelling. ACT 112: Negative or not required by law. Electronically signed by: Cristian Ruvalcaba M.D. 11/25/2023 5:05 PM Hospital Course (1) Cellulitis of toe, right: (2) Cellulitis of toe, left: (3) Ingrown right big toenail: (4) Ingrown left big toenail: Patient presenting from [facility] for evaluation of bilateral toe infections. Patient reports a history of ingrown toenails for the past 20 months. Most recently resected about 3 weeks ago and completed courses of Bactrim and clindamycin without improvement. B/L Toe cellulitis Secondary to ingrown right and left hallux medial and lateral border Failed outpatient antibiotic treatment with Bactrim, clindamycin --Left Toe X ray:No evidence for acute osteomyelitis within the left first toe. No fractures. Left first toe soft tissue swelling. --Right Toe X ray: No evidence for acute osteomyelitis. No fractures. Right first toe soft tissue swelling. -- Wound cultures: Growing MRSA --Vancomycin discontinued as patient developed rash Continue daptomycin, cefepime >> daptomycin only --S/P Partial nail avulsion with matrixectomy to right and left great toes bilateral nail borders by Dr. Castro on 11/28/2023 Discussed with podiatry today: Okay for discharge. Wash wound daily with saline and dressings changed daily including gauze and coban. Appreciate podiatry input Plan to discharge to correctional facility today (5) Depression: Chronic, stable Continue sertraline (6) Asthma: Currently no signs of exacerbation Does not utilize routine inhalers Continue Singulair DVT Px SCDs for now Disposition [facility] facility Total Time Total Time Spent Total Time Spent (In Minutes): 55 minutes Discharge Plan Discharge Items Patient Disposition: [facility] Reason For Visit: BL GREAT TOE CELLULITIS Discharge Diagnosis: Bilateral Toe cellulitis Secondary to ingrown right and left hallux medial and lateral border Activity: Per Instructions section Exercise/Sports: Wait until after follow-up appointment Non-emergency contact: Primary Care Provider and Surgeon Call non-emergency contact if: you have any medication questions, your symptoms worsen, your pain is concerning for you and you have a fever Follow-up/Referrals: Kris CASTILLO [Primary Care Provider] - Diet: Regular Addtl Attending Provider Instructions: Follow-up with your primary care physician at [facility] in 1 week 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 Castro as recommended --Complete the antibiotic course (Doxycycline 100mg BID) for 6 more days as prescribed --Continue wound care at [facility]:Wash wound daily with saline and dressings changed daily including gauze and coban. Seek immediate medical attention if your symptoms reoccur or worsen Please take all medications as instructed on discharge list below. Please call if you have any questions or problems. You can reach a [facility] hospitalist on duty at [facility] 24 hours a day by calling [phone] Pending Studies at Discharge: No Stand-Alone Forms: My [facility] Skilled Items Patient informed of condition?: Yes Discharge Level of Care: Other Communicable Disease: No Discharge Prognosis: Stable Lines: None Urinary Catheter: No Medications and DC Order Prescriptions: Continued acetaminophen 500 mg Tablet 500 mg PO Q6H montelukast [Singulair] 10 mg Tablet 10 mg PO HS sertraline 50 mg Tablet 50 mg PO DAILY doxycycline hyclate 100 mg Tablet 100 mg PO BID Qty: 13 0RF Rx Instructions: Start Date 11/09/23 - End Date 12/09/23 Discharge Orders: Discharge Order (Routine); Ordered 11/29/23 Ordered By: John Elizondo Admission Data Admit Date/Time: 11/26/23 12:04 Attending Provider: John Elizondo Admit Provider: Margot Henderson Primary Care Provider: Kris CASTILLO Other Providers: Margot Henderson; Daniel Castro
== END 2023-11-29 15:22 | DRG 603 ==
LOC: ED 13:00 → 3W 13:00 → SUATTDRO 16:54 → 3W 20:14